=== PATIENT | female | born 1980 | race Two or more races ===

== ENCOUNTER 2025-02-05 21:23 | Emergency (ER) | payer BC, MEDICAID ==
[~2025-02-05] VITALS: Ht 162.6 cm; Wt 92.7 kg
[~2025-02-05 21:23] MED LIST: PREN-129 OR
--- NOTE | 2025-02-05 22:04 | DVH ---
CT HEAD WITHOUT CONTRAST INDICATION: headache EXAM DATE: 02/05/2025 09:37 PM COMPARISON: None RADIATION DOSE: CTDIvol: 55.75 mGy, DLP: 55.75 mGy*cm PROCEDURE: CT scans of the head were obtained from the vertex to the skull base. Sagittal and coronal reconstructions were provided. All CT scans at this medical facility are performed using dose modulation techniques as appropriate t o a performed exam including the following: Automated exposure control was utilized; adjustment of th e MA and/or KV according to patient size; and use of iterative reconstruction technique. FINDINGS: The cerebral parenchyma appears to be normal configuration and attenuation. The ventricles, cisterns , and sulci appear age-appropriate. There is no evidence for acute territorial infarct, hemorrhage, or mass effect. The orbits are normal. There is mild mucosal thickening within the ethmoid air cells and left fronta l sinus.. The soft tissues and osseous structures appear within normal limits. IMPRESSION: 1. No acute territorial infarct, intracranial hemorrhage, or mass effect. 2. If clinical symptoms persist, MRI may be beneficial in further evaluation.
[2025-02-05 22:18] LABS: Hematocrit 41.3 % (36.0-46.0); Hemoglobin 14.3 g/dL (12.2-16.2); Mean Corpuscular Hemoglobin 30.6 pg (28.0-32.0); Mean Corpuscular Volume 88.5 fL (80.0-100.0); Nucleated Red Blood Cells % 0.0 %
[2025-02-05 22:28] LABS: Chloride 104 mmol/L (98-107)
[2025-02-05 22:29] LABS: Carbon Dioxide 23 mmol/L (20-31)
[2025-02-05 22:30] LABS: Calcium 9.2 mg/dL (8.7-10.4)
[2025-02-05 22:34] LABS: Glucose 90 mg/dL (74-106); Potassium 3.3 mmol/L (3.5-5.1)
[2025-02-05 22:35] LABS: Anion Gap 11 (5-15); BUN/Creatinine Ratio 8.8 (10.0-20.0); Blood Urea Nitrogen < 5 mg/dL (9-23); Sodium 138 mmol/L (136-145)
--- NOTE | 2025-02-05 22:49 | ED.PDOC ---
HPI (NEURO) HPI Comments 44-year-old female complains of dull diffuse headache worse on the left side of her head with anxiety and malaise for the last 1 day. Blood pressure noted to be elevated. . Chief Complaint: Headache Time Seen by MD: 21:30 Reviewed Notes: Nurses Notes Information Source: Patient Mode of Arrival: Ambulatory Severity: Moderate Headache Severity: Moderate Timing: Days Duration: Since onset Past Medical History PAST MEDICAL HISTORY: Denies Past Medical History (Other): Obesity Social History Smoker: Non-Smoker Alcohol: Denies ETOH Use Drugs: Denies Drug Use Constitutional: reports: fatigue, malaise Neurological: reports: headache All Other Systems: Reviewed and Negative Physical Exam General Appearance: Mild Distress HEENT: Normal ENT Inspection, Pharynx Normal, TMs Normal Neck: Full Range of Motion, Non-Tender, Normal, Normal Inspection Respiratory: Chest Non-Tender, Lungs Clear, No Accessory Muscle Use, No Respiratory Distress, Normal Breath Sounds Cardiovascular: No Edema, No JVD, No Murmur, No Gallop, Normal Peripheral Pulses, Regular Rate/Rhythm Breast Exam: Deferred Gastrointestinal: No Organomegaly, Non Tender, No Pulsatile Mass, Normal Bowel Sounds, Soft Genitalia: Deferred Pelvic: Deferred Rectal: Deferred Extremities: No calf tenderness, Normal capillary refill, Normal inspection, Normal range of motion, Non-tender, No pedal edema Musculoskeletal : Apperance: Normal Neurologic: Alert, quilt maker II-XII nml as Tested, No Motor Deficits, Normal Affect, Normal Mood, No Sensory Deficits Cerebellar Function: Normal Reflexes: Normal Skin: Dry, Normal Color, Warm Lymphatic: No Adenopathy Was a procedure done? Was a procedure done?: No X-Ray, Labs, Meds, VS Vital Signs Date Time Temp Pulse Resp B/P (MAP) Pulse Ox O2 Delivery O2 Flow Rate FiO2 02/05/25 23:15 65 16 98 Room Air 02/05/25 23:15 97.8 65 16 151/99 (116) 98 97.8 02/05/25 22:32 161/109 02/05/25 21:34 87 02/05/25 21:24 98.4 70 18 210/104 98 98.4 197/106 Lab Test 02/05/25 22:06 Range/Units White Blood Count 10.9 H 4.4-10.8 10^3/uL Red Blood Count 4.66 4.0-5.20 10^6/uL Hemoglobin 14.3 12.2-16.2 g/dL Hematocrit 41.3 36.0-46.0 % Mean Corpuscular Volume 88.5 80.0-100.0 fL Mean Corpuscular Hemoglobin 30.6 28.0-32.0 pg Mean Corpuscular Hemoglobin Concent 34.6 32.0-36.0 g/dL Red Cell Distribution Width 12.8 11.8-14.3 % Platelet Count 362 140-450 10^3/uL Mean Platelet Volume 6.6 L 6.9-10.8 fL Neutrophils (%) (Auto) 43.2 37.0-80.0 % Lymphocytes (%) (Auto) 47.3 10.0-50.0 % Monocytes (%) (Auto) 5.0 0.0-12.0 % Eosinophils (%) (Auto) 4.1 0.0-7.0 % Basophils (%) (Auto) 0.4 0.0-2.0 % Neutrophils # (Auto) 4.7 1.6-8.6 10 ^3/uL Lymphocytes # (Auto) 5.1 0.4-5.4 10 ^3/uL Monocytes # (Auto) 0.5 0-1.3 10 ^3/uL Eosinophils # (Auto) 0.5 0-0.8 10 ^3/uL Basophils # (Auto) 0 0-0.2 10 ^3/uL Nucleated Red Blood Cells 0.0 % Sodium Level 138 136-145 mmol/L Potassium Level 3.3 L 3.5-5.1 mmol/L Chloride Level 104 98-107 mmol/L Carbon Dioxide Level 23 20-31 mmol/L Anion Gap 11 5-15 Blood Urea Nitrogen < 5 L 9-23 mg/dL Creatinine 0.57 0.550-1.02 mg/dL Glomerular Filtration Rate Calc 116 >90 mL/min BUN/Creatinine Ratio 8.8 L 10.0-20.0 Serum Glucose 90 74-106 mg/dL Calcium Level 9.2 8.7-10.4 mg/dL Current Medications Medications (Trade) Dose Ordered Sig/Estefani Route Start Time Stop Time Status Last Admin Clonidine HCl (Catapres Tablet) 0.1 mg ONCE ONCE PO 02/05/25 21:45 02/05/25 21:46 DC 9/23/25 22:32 Potassium Chloride (Klor-Con Tablet) 20 meq ONCE ONCE PO 02/05/25 23:00 02/05/25 23:01 DC 02/05/25 23:00 Time of 1ST Reevaluation: 22:00 Reevaluation 1ST: Unchanged Patient Education/Counseling: Diagnosis, Treatment Family Education/Counseling: No Family Present Departure 1 Departure Time of Disposition: 23:30 Impression: Primary Impression: Headache Additional Impressions: Hypertension Hypokalemia Disposition: 01 HOME / SELF CARE / HOMELESS Condition: Stable e-Prescriptions Potassium Chloride (Potassium Chloride ER) 10 Meq Tab 10 MEQ PO BID for 10 Days, #20 TAB Prov: GAVINO FERNANDEZ MD 02/05/25 Amlodipine Besylate (Amlodipine Besylate) 5 Mg Tab 1 TAB PO DAILY, #90 TAB 3 Refills Prov: GAVINO FERNANDEZ MD 02/05/25 Discharged With: Self Critical Care Note Critical Care Time?: No Stability Stability form required: No Heart Score Heart Score: Heart Score Response (Comments) Value History N/A 0 EKG N/A 0 Age N/A 0 Risk Factors N/A 0 Troponin N/A 0 Total 0 GAVINO FERNANDEZ MD Feb 05, 2025 22:49
[2025-02-05] MEDS: POTASSIUM CHL 20 Meq TABLET PO ONE (23:00)
[2025-02-05] MEDS ORDERED: POTA-228 PO (23:01)
[2025-02-05] MEDS ORDERED: AMLO1TAB22 PO (23:01)
[2025-02-05 23:15] VITALS: BP 151/99; PULSE 65; RESP 16; TEMP 97.8; O2SAT 98
--- NOTE | 2025-02-05 23:57 | ECG ---
[facility] Test Date: 2025-02-05 Test Time: 21:33:39 Pat Name: LIYAH ZAVALA Department: ED Room: Gender: F Medical Records Supervisor: JEANETTE : 1980 Requested By: GAVINO FERNANDEZ Order Number: [id number] Reading MD: Measurements Intervals [place] Rate: 87 P: 33 MO: 171 QRS: 8 QRSD: 105 T: 25 QT: 342 QTc: 412 Interpretive Statements Sinus rhythm Please click the below link to view image of tracing.
== END 2025-02-05 23:41 | disposition home or self-care (01) ==
LOC: ER 21:23
DX: R51.9 Headache, unspecified (principal); I10 Essential (primary) hypertension; E87.6 Hypokalemia; F41.9 Anxiety disorder, unspecified; Z79.899 Other long term (current) drug therapy
CPT/HCPCS: 36415; 70450; 80048; 85025; 93005